=== PATIENT | female | born 2000 | race Hispanic/Latino ===

== ENCOUNTER 2024-01-05 08:26 | Outpatient (CLI) | payer BC ==
[2024-01-05] MEDS ORDERED: Iopamidol 370 76% 100 ML VIAL ONE (10:25)
== END 2024-01-05 08:27 | disposition home or self-care (01) ==
LOC: BICCT 08:26
PROVIDERS: ATTEND Internal Medicine Gastroenterology
DX: R10.32 Left lower quadrant pain (principal); K59.00 Constipation, unspecified; N83.292 Other ovarian cyst, left side
CPT/HCPCS: 74177; Q9967

== ENCOUNTER 2024-01-19 07:42 | Outpatient (CLI) | payer BC | END 2024-01-19 07:43 | disposition home or self-care (01) | LOC: BICULT 07:42 | PROVIDERS: ATTEND Internal Medicine Gastroenterology | DX: R93.5 Abnormal findings on diagnostic imaging of other abdominal regions, including retroperitoneum (principal); N83.8 Other noninflammatory disorders of ovary, fallopian tube and broad ligament | CPT/HCPCS: 76856 ==